=== PATIENT | male | born 1990 | race Caucasian/White ===

== ENCOUNTER 2021-01-29 14:34 | Emergency (ER) | payer SELFPAY ==
[~2021-01-29] VITALS: Ht 182.9 cm; Wt 81.6 kg
--- NOTE | 2021-01-29 14:34 | NUR ---
PT BIB SELF C/O "I DONT FEEL GOOD. BUDDY BEEN WALKING FOR DAYS" PT IS AAOX4, NOT IN RESPIRATORY DISTRESS, V/S STABLE, KEPT RESTED AND COMFORTABLE. WILL CONTINUE TO MONITOR.
--- NOTE | 2021-01-29 14:50 | NUR ---
SEEN AND EXAMINED BY .
--- NOTE | 2021-01-29 15:37 | NUR ---
Patient given written and verbal discharge instructions. Patient verbalizes understanding of instructions. Patient is ambulatory with steady gait. Refuses offer of [facility] placement. Patient given list of available shelters in surrounding area.
[2021-01-29 15:40] VITALS: BP 127/82
== END 2021-01-29 15:41 | disposition home or self-care (01) ==
LOC: ER 14:38
DX: R53.83 Other fatigue (principal); F17.200 Nicotine dependence, unspecified, uncomplicated; Z59.0 Homelessness